=== PATIENT | male | born 1985 | race Caucasian/White ===

== ENCOUNTER 2024-12-12 12:40 | Outpatient (REF) | payer OTHER, SELFPAY | END 2024-12-12 12:41 | disposition home or self-care (01) | LOC: HO.BBR 12:40 | PROVIDERS: PCP Internal Medicine; Visit Provider Urology | DX: D75.1 Secondary polycythemia (principal) | CPT/HCPCS: 85018; 99195 ==

== ENCOUNTER 2025-02-13 12:55 | Outpatient (REF) | payer OTHER, SELFPAY | END 2025-02-13 12:56 | disposition home or self-care (01) | LOC: HO.BBR 12:55 | PROVIDERS: PCP Internal Medicine; Visit Provider Urology | DX: D75.1 Secondary polycythemia (principal) | CPT/HCPCS: 85018; 99195 ==

== ENCOUNTER 2025-04-15 13:59 | Outpatient (REF) | payer OTHER, SELFPAY | END 2025-04-15 14:00 | disposition home or self-care (01) | LOC: HO.BBR 13:59 | PROVIDERS: PCP Internal Medicine; Visit Provider Urology | DX: D75.1 Secondary polycythemia (principal) | CPT/HCPCS: 85018; 99195 ==